=== PATIENT | female | born 1930 | race Caucasian/White ===

== ENCOUNTER → 2016-08-23 | Outpatient (CLI) | payer MEDICARE ==
[~2016-08-23] MED LIST: ACET-62 PO; ALBU8.5H INH; ALEN70TA48 PO; ALPR0.255 PO; ATEN25TA PO; BENZ-16 PO; BISA10SU8 RECTALLY; CALC600T12 PO; CARB1TAB18 PO; CHOL200047 PO; DIGO125T88 PO; DOCU-168 PO; FLUT16SP EA NOSTRIL; FOLI1TAB15 PO; GABA-338 PO; GUAI5SYR PO; HYDR-4246 PO; LATA2.5D2 LEFT EYE; MAGN400O4 PO; MECL-103 PO; PRAM0.259 PO; RIVA15TA PO; RIVA20TA PO; SERT25TA5 PO; SODI45SP7 EA NOSTRIL; strontium PO
[2016-08-23 16:08] LABS: ALBUMIN 4.1 G/DL (3.5-5.0); BILIRUBIN,TOTAL 2.6 MG/DL (0.20-1.30); CALCIUM 9.9 MG/DL (8.4-10.2); MAGNESIUM 1.9 MG/DL (1.6-2.3); POTASSIUM 4.8 MEQ/L (3.6-5); TOTAL PROTEIN 8.2 G/DL (6.3-8.2)
[2016-08-23 16:17] LABS: IGG - IMMUNOGLOBULIN G 1016.85 MG/DL (700-1600); IGM - IMMUNOGLOBULIN M 55.05 MG/DL (40-230)
[2016-08-23 16:29] LABS: IGA - IMMUNOGLOBULIN A 1220.84 MG/DL (70-400)
[2016-08-23 16:50] LABS: ABSOLUTE RETICS # 0.5891 T/MM3 (0.0300-0.0900); HCT - HEMATOCRIT 44.3 % (36-46); HGB - HEMOGLOBIN 12.2 GM/DL (12-16); MEAN CORPUSCULAR HGB 41.4 UUG (26-34); MEAN CORPUSCULAR HGB CONC(MCHC 27.5 GM/DL (31-37); MEAN CORPUSCULAR VOLUME 150.2 UM3 (80-100); MEAN PLATELET VOLUME 11.9 UM3 (9.4-12.4); RED BLOOD COUNT 2.95 M/MM3 (4.00-5.20); RETICULOCYTE HGB 38.2 PG (30.8-36.6); WBC - WHITE BLOOD COUNT 11.5 T/MM3 (4.5-11.0)
[2016-08-23 18:37] LABS: ANISOCYTOSIS 1+; BAND NEUTROPHILS # 0.2 T/MM3; EOSINOPHILS # (MANUAL) 0.2 T/MM3 (0-0.5); LYMPHOCYTES # (MANUAL) 5.2 T/MM3 (1-4.8); MONOCYTES # (MANUAL) 0.5 T/MM3 (0-0.8); NEUTROPHILS #(MANUAL)-ABSOLUTE 5.4 T/MM3 (1.8-7.7); NUCLEATED RED BLOOD CELLS 3; TOTAL CELLS COUNTED 100 %
[2016-08-23 18:38] LABS: POIKILOCYTOSIS 2+
[2016-08-23 18:39] LABS: POLYCHROMASIA 1+
[2016-08-25 04:26] LABS: FOLATE > 20.0 NG/ML (2.76-20); VITAMIN B12 - BATCH 639 PG/ML (239-931)
== END ==
LOC: LABN 15:41
PROVIDERS: ATTEND Internal Medicine Hematology & Oncology
DX: D58.8 Other specified hereditary hemolytic anemias (principal); D64.9 Anemia, unspecified; D72.828 Other elevated white blood cell count
CPT/HCPCS: 80053; 82607; 82668; 82746; 82784; 83010; 83090; 83615; 83735; 83883; 83921; 84155; 84165; 85025; 85045; 86334; 86850; 86880

== ENCOUNTER → 2016-09-06 | Outpatient (CLI) | payer MEDICARE ==
--- NOTE | 2016-09-06 17:12 | DI ---
Indication: ITS.REASON: D47.2 Monoclonal gammopathy PROCEDURE: OSSEOUS SURVEY 1 YR TO ADULT: Encounter: Initial Comparison: No direct comparison available Findings: AP and lateral views of the skull: No gross lytic or blastic osseous lesion. There is a apparent sharp cortical margin seen in the right temporal area on the frontal view which is most likely artifactual. AP and lateral views of the cervical spine: No acute fracture. Mild degenerative change in the lower cervical spine. No obvious lytic or blastic bony lesion. AP view of the right ribs: No acute displaced rib fracture. No obvious lytic or blastic rib lesion. AP view of the left ribs: No acute fracture. No lytic or blastic rib lesion appreciated. AP view of the right humerus: Normal for age. AP view of the left humerus: Normal for age. AP view of the right forearm: Normal for age. AP view of the left forearm: Normal for age. AP and lateral views of the thoracic spine: No acute fracture or subluxation. No pathologic lytic or blastic bony lesion seen. Minimal degenerative change for age. AP and lateral views of the lumbar spine: No acute fracture. Minimal degenerative change for age. No lytic or blastic bony lesion. AP view the pelvis: No acute fracture. No lytic or blastic bony lesion. Healed internally fixed left femoral neck fracture. AP views of the right femur: No acute fracture. No lytic or blastic bony lesion. AP views of the left femur: Healed internally fixed left femoral neck fracture. No evidence of hardware loosening or failure. No definite lytic or blastic bony lesions. AP view of the right tibia and fibula: No acute fracture. No lytic or blastic bony lesions. Mild fibular periosteal thickening suggesting venous insufficiency. AP view of the left tibia and fibula: No acute fracture. No lytic or blastic bony lesions. Mild fibular periosteal thickening suggesting venous insufficiency. Impression: No lytic or blastic osseous lesions seen. .
== END ==
LOC: IMA 16:18
PROVIDERS: ATTEND Internal Medicine Hematology & Oncology
DX: D47.2 Monoclonal gammopathy (principal)

== ENCOUNTER → 2016-09-07 | Outpatient (CLI) | payer MEDICARE | LOC: LABN 21:35 | PROVIDERS: ATTEND Internal Medicine Hematology & Oncology | DX: D47.2 Monoclonal gammopathy (principal) | CPT/HCPCS: 82570; 83883; 84156; 84166; 86335 ==

== ENCOUNTER → 2016-09-20 | Outpatient (CLI) | payer MEDICARE ==
[2016-09-20 10:12] LABS: HCT - HEMATOCRIT 44.1 % (36-46); HGB - HEMOGLOBIN 11.9 GM/DL (12-16); MEAN CORPUSCULAR HGB 41.5 UUG (26-34); MEAN CORPUSCULAR VOLUME 153.7 UM3 (80-100); MEAN PLATELET VOLUME 10.8 UM3 (9.4-12.4); RED BLOOD COUNT 2.87 M/MM3 (4.00-5.20); WBC - WHITE BLOOD COUNT 12.2 T/MM3 (4.5-11.0)
[2016-09-20 10:27] LABS: BILIRUBIN,TOTAL 2.6 MG/DL (0.20-1.30); CALCIUM 9.7 MG/DL (8.4-10.2); CREATININE 0.8 MG/DL (0.7-1.2); POTASSIUM 4.8 MEQ/L (3.6-5); TOTAL PROTEIN 8.1 G/DL (6.3-8.2)
[2016-09-20 10:45] LABS: EOSINOPHILS # (MANUAL) 0.2 T/MM3 (0-0.5); LYMPHOCYTES # (MANUAL) 5.7 T/MM3 (1-4.8); MONOCYTES # (MANUAL) 0.9 T/MM3 (0-0.8); NEUTROPHILS #(MANUAL)-ABSOLUTE 5.4 T/MM3 (1.8-7.7); TOTAL CELLS COUNTED 100 %
[2016-09-20 10:46] LABS: ANISOCYTOSIS 2+; POIKILOCYTOSIS 1+; POLYCHROMASIA 1+
== END ==
LOC: LAB 09:45
PROVIDERS: ATTEND Internal Medicine Hematology & Oncology
DX: D47.2 Monoclonal gammopathy (principal)
CPT/HCPCS: 36415; 80053; 83615; 85025

== ENCOUNTER 2017-04-21 21:12 | Observation (INO) ==
[2017-04-21] MEDS ORDERED: SALINE FLUSH 10ml SYRINGE IVF PRN (21:21)
--- NOTE | 2017-04-21 21:26 | Emergency Department Report ---
Cardiac General HPI - General Stated Complaint: dizzy, nausea, soa Time Seen by Provider: 04/21/17 21:20 Source: patient, EMS, RN notes reviewed, old records reviewed Mode of arrival: EMS Limitations: altered mental status - History of Present Illness HPI narrative: 87yo woman presented to the ER by EMS for evaluation of tachyarrhythmia. Pt has a h/o a-fib; is on xarelto and digoxin for rhythm control and prophylaxis. Today , pt has not felt well most of the day; she was evaluated by a nurse this evening and found to be in a tachycardic rhythm. EMS gave pt 6mg adenosine with return to NSR for 5min. Pt then went back into a tachy arrhythmia; a second 6mg adenosine with return to NSR. Pt presented to the ER for evaluation in NSR. Occurred At: home Onset (ago): hour(s) Duration: constant Severity: similar to previous episodes Treatments prior to arrival: adenosine History of Similar Symptoms: Yes - Related Data Home Medications Medication Instructions Recorded Confirmed Albuterol Sulfate [Proair Hfa] 1 puff INH QID PRN #0 09/03/15 Alendronate Sodium 70 mg PO WEEKLY #0 09/03/15 Carbidopa/Levodopa 2 tab PO HS #0 09/03/15 [Carbidopa-Levodopa 10-100 Tab] Cholecalciferol (Vitamin D3) 2,000 unit PO DAILY #0 09/03/15 (Vitamin D3) Latanoprost [Xalatan] 1 drop LEFT EYE HS #0 09/03/15 Pramipexole Di-HCl [Pramipexole 0.25 mg PO BID #0 09/03/15 Dihydrochloride] Sertraline HCl 25 mg PO HS #0 09/03/15 strontium 227 mg PO DAILY #0 09/03/15 Acetaminophen 500 - 1,000 mg PO TID PRN #0 11/11/15 Digoxin 125 mcg PO DAILY #0 11/11/15 Gabapentin 300 mg PO TID #0 11/11/15 Previous Rx's Medication Instructions Recorded Atenolol 25 mg PO DAILY #30 tab 04/14/16 Benzonatate 100 mg PO Q4HR PRN #30 cap 04/14/16 Bisacodyl 10 mg RECTALLY DAILY PRN #20 04/14/16 Calcium Carbonate [Calcium] 600 mg PO TID #90 tab 04/14/16 Docusate Sodium [Colace] 1 cap PO BID #60 cap 04/14/16 Fluticasone Nasal [place] [Flonase] 2 spray EA NOSTRIL DAILY #1 bottle 04/14/16 Folic Acid 1 mg PO DAILY #30 tab 04/14/16 Guaifenesin/Dm Oral Liq 10 ml PO Q4H PRN #100 ml 04/14/16 [Robitussin Dm] Magnesium Hydroxide [Milk of 30 ml PO DAILY PRN #1 bottle 04/14/16 Magnesia] Meclizine HCl 25 mg PO TID PRN #30 tab 04/14/16 Rivaroxaban [Xarelto] 15 mg PO BIDWM #25 tab 04/14/16 Rivaroxaban [Xarelto] 20 mg PO WS #30 tab 04/14/16 Sodium Chloride [Deep Sea] 1 spray EA NOSTRIL QID PRN #1 04/14/16 bottle Minong 5 mg-acetaminophen 325 mg 1 tab PO Q6H PRN #60 tab 02/15/17 tablet Xanax (alprazolam) 0.25 mg tablet 0.25 mg PO HS #30 tab 02/21/17 Allergies Allergy/AdvReac Type Severity Reaction Status Date / Time doxycycline Allergy Unknown Verified 04/04/16 14:14 oxycodone Allergy Unknown Verified 04/04/16 14:14 Penicillins Allergy Unknown Verified 04/04/16 14:14 tramadol Allergy Unknown Verified 04/04/16 14:14 Review of Systems All systems: reviewed and negative except as stated Cardiovascular: Reports: as per HPI, palpitations. Denies: chest pain, dyspnea on exertion, orthopnea, edema, syncope, paroxysmal nocturnal dyspnea PFSH Patient Stated Medical History Dementia Yes Parkinson's Disease Yes Hypertension Yes Anemia Yes Osteoarthritis Yes Other Musculoskeletal Yes: RESTLESS LEGS, FX R [facility] Medical History Hypertriglyceridemia (Chronic Medical) Mixed anxiety depressive disorder (Chronic Medical) Pulmonary embolism (Chronic Medical) Osteoporosis (Chronic Medical) HTN (hypertension) (Chronic Medical) Restless legs syndrome (RLS) (Chronic Medical) Parkinsons disease (Chronic Medical) Anxiety (Chronic Medical) Polycythemia vera (Chronic Medical) Dr. Quinteros Polycythemia vera (Acute Medical) Medical History Updates: A-fib Physical Exam - Limitations Limitations: no limitations - General General appearance: alert, in no apparent distress - Normal Exams: Head:: Normocephalic without trauma Eyes:: Pupils are PERRLA w/ EOMI, No scleral icterus, irritation, or foreign bodies noted ENMT:: No facial trauma, nasal exudates, pharyngeal erythema, or exudates are noted Neck:: Full range of motion, without adenopathy Chest/Respirations:: Clear all chan, with good airflow, and symmetry bilaterally Cardiovascular:: Regular rate and rhythm, without murmur or gallop, Pulses 2+ all extremities, capillary refill, <2 seconds all extremities Lymphatic:: No lymphadenopathy Musculoskeletal:: No tenderness, or deformity noted Integumentary:: No rashes, hives, or bruising noted Neurological:: Patient is alert, and oriented Psychiatric:: Patient exhibits, appropriate attention Course - Consultations Consultation #1: Teleneurology: Will accept pt for obs overnight. Time: 22:37 Vital Signs Temperature 98.1 F 04/21/17 21:15 Pulse Rate 93 04/21/17 21:15 Respiratory Rate 20 04/21/17 21:15 Blood Pressure 129/60 04/21/17 21:15 Pulse Oximetry 93 04/21/17 21:15 Temperature 98.1 F 04/21/17 21:15 Pulse Rate 96 04/21/17 21:47 Respiratory Rate 45 H 04/21/17 21:47 Blood Pressure 117/60 04/21/17 21:47 Pulse Oximetry 90 04/21/17 21:47 Cardiac General - Differential Diagnosis Differential diagnosis: Likely: palpitations, anxiety, sinus tachycardia, artial fibrillation, artial flutter, supraventricular tachycardia - Medical Records Attestation: I reviewed the patient's medical records. - Lab Data Attestation: I reviewed the patient's lab results. Result diagrams: 04/21/17 21:25 04/21/17 21:25 Lab Results 04/21/17 04/21/17 04/21/17 Range/Units 21:25 21:25 21:47 WBC 12.3 H (4.5-11.0) T/MM3 RBC 2.84 L (4.00-5.20) M/MM3 Hgb 11.6 L (12-16) GM/DL Hct 45.5 (36-46) % MCV 160.2 H (80-100) UM3 MCH 40.8 H (26-34) UUG MCHC 25.5 L (31-37) GM/DL RDW Std Deviation 88.6 H (36.9-50.2) FL Plt Count 319 (130-400) T/MM3 MPV 11.5 (9.4-12.4) UM3 Immature Gran % (Auto) Not performed Neut % (Auto) Not performed Lymph % (Auto) Not performed [place] % (Auto) Not performed Eos % (Auto) Not performed Baso % (Auto) Not performed Neut # (Auto) Not performed Lymph # (Auto) Not performed [place] # (Auto) Not performed Eos # (Auto) Not performed Baso # (Auto) Not performed Abs Immat Gran (auto) Not performed Neutrophils % (Manual) 55.0 (33-66) % Band Neutrophils % 1.0 (0-6) % Lymphocytes % (Manual) 36.0 (23-45) % Monocytes % (Manual) 6.0 (0-9.0) % Eosinophils % (Manual) 2.0 (0-4) % Neutrophils # (Manual) 6.8 (1.8-7.7) T/MM3 Band Neutrophils # 0.1 T/MM3 Lymphocytes # (Manual) 4.4 (1-4.8) T/MM3 Monocytes # (Manual) 0.7 (0-0.8) T/MM3 Eosinophils # (Manual) 0.2 (0-0.5) T/MM3 Poikilocytosis 1+ Anisocytosis 2+ Macrocytosis 2+ [place] Bodies 1+ RBC Morph Comment Abnormal Turbidity < 20 (0-20) Sodium 141 (134-144) MEQ/L Potassium 4.5 (3.6-5) MEQ/L Chloride 103 (98-107) MEQ/L Carbon Dioxide 21 L (22-30) MEQ/L Anion Gap 17 H (5-15) MEQ/L BUN 23.0 H (7-17) MG/DL Creatinine 1.2 (0.7-1.2) MG/DL GFR Calculation 42 BUN/Creatinine Ratio 19 (6-26) RATIO Glucose 210 H (65-110) MG/DL Calculated Osmolality 281 H (261-280) MOSM/KG Calcium 9.0 (8.4-10.2) MG/DL Icterus Index < 2 (0-7) Troponin I 0.022 (0-0.12) ng/ml TSH 3.49 (0.47-4.68) MIU/L Specimen Hemolysis 108 H (0-25) Ur Collection Type Urine, clean catch Urine Color Yellow (YELLOW) Urine Clarity Clear Urine pH 7.0 (5.0-8.0) Ur Specific [place] 1.010 L (1.015-1.025) Urine Protein Negative (NEGATIVE) Urine Glucose (UA) Negative (NEGATIVE) Urine Ketones Negative (NEGATIVE) Urine Occult Blood Negative (NEGATIVE) Urine Nitrate Negative (NEGATIVE) Urine Bilirubin Negative (NEGATIVE) Urine Urobilinogen 0.2 (NORMAL) EU/DL Ur Leukocyte Esterase Trace A (NEGATIVE) Urinalysis Comment Microscopic not ind. - Radiology Data Attestation: I reviewed the patient's radiology results. CXR: Improved CXR; No acute CT pathology. - EKG Data EKG #1 EKG attestation: Yes: I reviewed and interpreted this EKG. EKG shows normal: sinus rhythm, QRS complexes, ST-T waves [place]/QRS: left axis deviation Heart block present: 1st Degree Disposition Prescriptions: No Action Alendronate Sodium 70 mg PO WEEKLY #0 Albuterol Sulfate [Proair Hfa] 1 puff INH QID PRN #0 PRN Reason: PRN ORDERS Sertraline HCl 25 mg PO HS #0 Carbidopa/Levodopa [Carbidopa-Levodopa 10-100 Tab] 2 tab PO HS #0 Cholecalciferol (Vitamin D3) (Vitamin D3) 2,000 unit PO DAILY #0 Digoxin 125 mcg PO DAILY #0 Acetaminophen 500 - 1,000 mg PO TID PRN #0 PRN Reason: PAIN Calcium Carbonate [Calcium] 600 mg PO TID #90 tab Atenolol 25 mg PO DAILY #30 tab Guaifenesin/Dm Oral Liq [Robitussin Dm] 10 ml PO Q4H PRN #100 ml PRN Reason: COUGH Fluticasone Nasal [place] [Flonase] 2 spray EA NOSTRIL DAILY #1 bottle Sodium Chloride [Deep Sea] 1 spray EA NOSTRIL QID PRN #1 bottle PRN Reason: NASAL CONGESTION Bisacodyl 10 mg RECTALLY DAILY PRN #20 PRN Reason: CONSTIPATION Magnesium Hydroxide [Milk of Magnesia] 30 ml PO DAILY PRN #1 bottle PRN Reason: CONSTIPATION Folic Acid 1 mg PO DAILY #30 tab Rivaroxaban [Xarelto] 20 mg PO WS #30 tab Docusate Sodium [Colace] 1 cap PO BID #60 cap Pramipexole Di-HCl [Pramipexole Dihydrochloride] 0.25 mg PO BID #0 strontium 227 mg PO DAILY #0 Latanoprost [Xalatan] 1 drop LEFT EYE HS #0 Gabapentin 300 mg PO TID #0 Rivaroxaban [Xarelto] 15 mg PO BIDWM #25 tab Benzonatate 100 mg PO Q4HR PRN #30 cap PRN Reason: COUGH Meclizine HCl 25 mg PO TID PRN #30 tab PRN Reason: VERTIGO Minong 5 mg-acetaminophen 325 mg tablet 1 tab PO Q6H PRN #60 tab PRN Reason: pain Xanax (alprazolam) 0.25 mg tablet 0.25 mg PO HS #30 tab Referrals: Juan F Diop MD [Primary Care Provider] -
[2017-04-21] MEDS ORDERED: ACETAMINOPHEN 325 MG TABLET PO PRN (23:20)
[2017-04-21] MEDS ORDERED: NS 1,000 ML IV SCH (23:20)
[2017-04-21 23:22] VITALS: BMI 19.5
--- NOTE | 2017-04-22 00:08 | History & Physical Report ---
History of Present Illness Date: 04/22/17 Chief complaint: tachycardia, SVT, gen weakness HPI: Lotus is an 87 y/o female w/ h/o Afib x one time following repair of femur fracture last year, h/o PE about 6 months after femur fx, HTN and multiple other medical issues who presents to ER at [facility] w/ elevated HR. Patient was out w/ her family most of the day and returned to the care home and stated she was not feeling well and feeling generally weak so nurse took her pulse which was 160 at [place]. EMS came and patient still tachycardic, thought to be SVT so adenosine given x 2 and patient returned to sinus rhythm. Patient is ED states she is feeling better, HR in the 80s and sinus rhythm; Patient tachypneic at times and her O2 sat was low so she was placed on 2 L/min O2 per [place] and now sats 95-96% and RR improving. Patient had CXR which per report showed no acute process, troponin = 0.22, WBC = 12.3, UA negative except trace leukocytes and not sent for culture. Patient admitted to the hospitalist service for further evaluation and management. Patient currently states "I feel good and I want to go home". I spoike w/ patient and patient's son and he is the DPOA med decisions and patient is to be a DNR code status. Review of Systems Review of systems: Denies cp, cough and denies any change in baseline SOA which is mild according to patient's son. Patient has baseline THOMAS w/ moderate exertion - walking a distance to the dining nav[place]. She is not on O2 at [place]; Denies KWONG, URI symtpoms ; denies dysphagia, change in bowel or bladder habits. Denies n/t and denies focal neuro deficits. States she did not have any palpitations or feeling of heart racing tonight. [facility] Patient Stated Medical History Dementia Yes Parkinson's Disease Yes Cataracts Yes Hearing Loss Yes Cardiac Arrhythmia Yes Hypertension Yes Hx Urinary Tract Infection Yes Anemia Yes Blood Disorders Yes Osteoarthritis Yes Other Musculoskeletal Yes: RESTLESS LEGS, FX R [facility] Medical History Atrial fibrillation (Acute Medical) Hypertriglyceridemia (Chronic Medical) Mixed anxiety depressive disorder (Chronic Medical) Pulmonary embolism (Chronic Medical) Osteoporosis (Chronic Medical) HTN (hypertension) (Chronic Medical) Restless legs syndrome (RLS) (Chronic Medical) Parkinsons disease (Chronic Medical) Anxiety (Chronic Medical) Polycythemia vera (Chronic Medical) Dr. Quinteros Polycythemia vera (Acute Medical) Medical History Updates: A-fib following femur fx repair within past 1-2 years; Also PE about 6 months after femur fx repair. Family History: No significant family history reported - Social History Smoking status: Never smoker Medications Home Medications Medication Instructions Recorded Confirmed Type Alendronate Sodium 70 mg PO WEEKLY #0 09/03/15 04/22/17 History Carbidopa/Levodopa 2 tab PO HS #0 09/03/15 04/22/17 History [Carbidopa-Levodopa 10-100 Tab] Cholecalciferol (Vitamin D3) 2,000 unit PO DAILY #0 09/03/15 04/22/17 History (Vitamin D3) Latanoprost [Xalatan] 1 drop LEFT EYE HS #0 09/03/15 04/22/17 History Pramipexole Di-HCl [Pramipexole 0.25 mg PO TWICEDAILY #0 09/03/15 04/22/17 History Dihydrochloride] Sertraline HCl 50 mg PO HS #0 09/03/15 04/22/17 History strontium 227 mg PO DAILY #0 09/03/15 04/22/17 History Acetaminophen 650 mg PO TID PRN #0 11/11/15 04/22/17 History Digoxin 125 mcg PO DAILY #0 11/11/15 04/22/17 History Gabapentin 300 mg PO BID #0 11/11/15 04/22/17 History Fenofibrate [Lofibra] 160 mg PO DAILY 04/22/17 04/22/17 History Gabapentin [Neurontin] 600 mg PO HS 04/22/17 04/22/17 History Hydrocodone/APAP *Ed Prepack* 1 tab PO Q4-6HR PRN 04/22/17 04/22/17 History [[place] 5/325 Ed Prepack] Latanoprost 2.5 ml LEFT EYE HS 04/22/17 04/22/17 History Mirtazapine [Remeron] 7.5 mg PO HS 04/22/17 04/22/17 History Multivit-Min/FA/Lycopen/Lutein 1 each PO DAILY 04/22/17 04/22/17 History [Centrum Silver Tablet] Pramipexole [Mirapex] 0.5 mg PO NOON 04/22/17 04/22/17 History Rivaroxaban [Xarelto] 10 mg PO DAILY 04/22/17 04/22/17 History Allergies Allergy/AdvReac Type Severity Reaction Status Date / Time doxycycline Allergy Unknown Verified 04/04/16 14:14 oxycodone Allergy Unknown Verified 04/04/16 14:14 Penicillins Allergy Unknown Verified 04/04/16 14:14 tramadol Allergy Unknown Verified 04/04/16 14:14 Exam Vital Signs: Temperature 98.1 F 04/21/17 21:15 Pulse Rate 96 04/21/17 21:47 Respiratory Rate 45 H 04/21/17 21:47 Blood Pressure 117/60 04/21/17 21:47 Pulse Oximetry 90 04/21/17 21:47 Telemetry Rhythm: Sinus Rhythm Height/Weight/BMI: Height 1.57 m Weight 48.5 kg Body Mass Index 19.5 - Constitutional Present: no acute distress, well nourished, well developed - Routine HEENT Exam Head: Present: normocephalic, atraumatic Eye: Present: EOMI, PERRL ENT: Present: mucous membranes dry - Routine Neck Exam Present: supple, full ROM. Absent: JVD - Routine Respiratory Exam Present: CTA bilaterally, rhonchi (scattered). Absent: accessory muscle use Comments: has elevated RR - improved compared to initial presentation - Routine Cardiovascular Exam Present: RRR, S1, S2 - Routine Abdominal Exam Present: soft, normoactive bowel sounds, non distended, non tender - Routine Extremities Exam Absent: cyanosis, clubbing, edema - Routine Skin Exam Present: intact, dry, warm. Absent: cyanosis - Routine Neurological Exam Present: alert, oriented X3, CN II-XII intact hard of hearing - Routine Psychiatric Exam Present: normal affect, normal thought process Results - Labs CBC & Chem 7: 04/22/17 05:15 04/22/17 05:15 Assessment and Plan Assessment and Plan: Assessment: 1) Acute SVT - resolved w/ Adenosine x 2 2) Acute Hypoxia - possibly chronic in nature though not on O2 at home and pulse ox not often checked 3) Chronic SOA, irvin w/ exertion - likely multifactorial 4) HTN 5) AFib - paroxysmal - to son's knowledge only occurred one time after femur fx repair about 1-2 years ago 6) H/o PE - on Xarelto 7) Parkinson's 8) HLD 9) OA 10) RLS PLan: 1) Admit to Hospitalist service 2) Telemetry 3) Cardiology consult 4) Serial troponins 5) IVFS that of NS at 75 cc/hour overnight - reassess for need in the AM 6) Home meds - to be reviewed and restarted as indicated 7) Dig level 8) Labs in AM 9) Prn albuterol or xopenex if available 10) Oxygen therapy - titrate as needed to keep sats > 90% 11) Supportive care 12) DNR - confirmed by patient's son who is DPOA Medical 13) Continue Xarelto I discussed the plan of care w/ the patient and the patient verbalized understanding and agreement Ana Paula 04/22/17-1130 CC: Feel tired and nauseated - Nursing staff at [place] notes tachycardia HPI: 87 y/o WF presents to [facility] ED via ems secondary to above noted concerns. Spent day out with family for Thanksgiving. Was not feeling well most of the day -more tired. Ate okay. Notes SOA with activities, but nothing out of ordinary. When got home, was feeling very tired. Wanted to go to bed as so tire. [place] very nauseated-did not take her evening medications as knew would not be able to keep them down. Nursing checked on patient. Found HR very elevated. Patient not feeling palpitations or chest pain/pressure. EMS activated. Given 6mg IV adenosine and HR went to NSR for about 5 minutes. Returned to tachycardia- repeat 6mg adenosine give and return to NSR. Taken to [facility] ED for evaluation. EKG with NSR. Placed in OBS for further evaluation. PHMx: Paroxysmal afib, Xarelto anticoagulation secondary to PE, HTN, HLD, Parkinson's OA, RLS, MGUS, Hx Splenectomy, Hx femur fracture. Med/Allergies - see JUL Shx: Lives at [facility] in [place]. No smoke. Jadon PCP. FHx: Mother-CHF,CVA. Father-liver Ca. Sister-Ovarian Ca. Son-strokes. Daughter at 21 secondary to pulm HTN ROS: as above. Other than fatigue and nausea last night, denies new symptoms. 10 point ROS discussed and negative. Exam: GEN: [id number] awake and alert. HEENT: NC/AT PERRLA EOMI MMM Neck: Midline, supple CV: regular without murmur Lungs: clear bilaterally. No crackles or wheezes. Breaths comfortably on RA without distress AB: soft nt/nd +BS EXT: no C/C/E. SCD in place MS: normal muscle mass and tone in upper/lower ext. Neuro: CN II-XII intact. No focal deficits Psych: awake alert appropriate. No agitation or restlessness SKIN: warm and dry. Assessment SVT - resolved post adenosine Elevated troponin secondary to tachycardia Hypoxia - resolved Paroxysmal afib Anticoagulation with Xarelto HTN Parkinson's MGUS OS RLS Plan OBS. Tele. Serial enzymes. Continue home meds. Cardiology consult. Wean O2. DNR as per her requests. Case discussed with CM, patient and her son's. DVT Prophylaxis: SCD's Resuscitation Status: Do Not Resuscitate Hospital Course Summary Disclaimer: The visit summary below is not to be considered part of the above Progress Note. Hospital Course: 04/21/17 Assessment: Acute SVT - resolved w/ Adenosine x 2 Acute Hypoxia - possibly chronic in nature though not on O2 at home and pulse ox not often checked Chronic SOA, irvin w/ exertion - likely multifactorial HTN AFib - paroxysmal - to son's knowledge only occurred one time after femur fx repair about 1-2 years ago H/o PE - on Xarelto Parkinson's HLD OA RLS Plan: Admit to Hospitalist service Telemetry Cardiology consult Serial troponins IVFS that of NS at 75 cc/hour overnight - reassess for need in the AM Home meds - to be reviewed and restarted as indicated Dig level Labs in AM Prn albuterol or xopenex if available Oxygen therapy - titrate as needed to keep sats > 90% Supportive care DNR - confirmed by patient's son who is DPOA Medical Continue Xarelto
[2017-04-22] MEDS ORDERED: PRAMIPEXOLE 0.25 MG TABLET PO SCH ×2 (01:15→09:00)
[2017-04-22] MEDS ORDERED: HYDROCODONE/APAP 5mg/325mg TABLET PO PRN (05:50)
--- NOTE | 2017-04-22 08:06 | XRay Report ---
Indication: Tachy PROCEDURE: XR chest 1V: Encounter: Initial Comparison: April 13, 2016 Findings: Chronic increased interstitial markings could be due to pulmonary vascular congestion. Prior left pleural effusion has resolved. No new areas of lobar consolidation. No pneumothorax. Heart size and mediastinal contours are stable. Impression: No pneumonia or overt congestive failure. .
[2017-04-22 08:16] VITALS: TEMP 99.8
[2017-04-22] MEDS: GABAPENTIN 300 MG CAPSULE PO SCH ×2 (08:29→11:56)
[2017-04-22] MEDS: CALCIUM CARBONATE 600 MG TABLET PO SCH ×2 (08:38→15:25)
[2017-04-22] MEDS ORDERED: FENOFIBRATE 160 MG TABLET PO SCH (09:00)
[2017-04-22] MEDS ORDERED: DIGOXIN 125 MCG TABLET PO SCH (09:00)
[2017-04-22] MEDS ORDERED: PRAMIPEXOLE 0.5 MG TABLET PO SCH (12:00)
[2017-04-22 13:17] VITALS: BP 125/61; PULSE 70; RESP 18; O2SAT 92
--- NOTE | 2017-04-22 15:27 | Cardiology Consult Note ---
<Meenu Mohr - Last Filed: 04/22/17 16:11> History of Present Illness Consult date: 04/22/17 Requesting physician: Asaf Goss Chief complaint: Tachycardia, general feeling of unwellness History of present illness: Pt has a known history of PAF, on xarelto and metoprolol. She follows with Dr. Ronda Robb in [place] once yearly, she does not remember when she saw him last. She spent most of the day yesterday out with her family and returned to the residential not feeling well, her pulse was elevated and EMS was called. Per EMS report they felt the rhythm to be SVT and she was given 2 doses of adenosine , she arrived to the ED in SR rate 80's. She denies chest pain, palpitations or near syncope. She has a hx of PE's and is on Xarelto. She is a poor historian and pleasantly demented upon interview and states repeatedly she would like to go home. Review of Systems - Constitutional Constitutional: Present: fatigue, weakness. Absent: anorexia, fever(s) - EENMT Eyes: Absent: loss of vision Balance: Absent: vertigo - Cardiovascular Cardiovascular: Present: dyspnea on exertion. Absent: chest pain, palpitations , syncope, edema Rhythm: Present: abnormal rhythm Vascular: Absent: pedal edema - Respiratory Respiratory: Present: dyspnea. Absent: cough - Gastrointestinal Gastrointestinal: Absent: abdominal pain - Genitourinary Genitourinary: Absent: dysuria - Musculoskeletal Musculoskeletal: Present: abnormal gait - Neurological Neurological: Present: confusion. Absent: dizziness - Endocrine Endocrine: Absent: palpitations [facility] Patient Stated Medical History Dementia Yes Parkinson's Disease Yes Cataracts Yes Hearing Loss Yes Cardiac Arrhythmia Yes Hypertension Yes Hx Urinary Tract Infection Yes Anemia Yes Blood Disorders Yes Osteoarthritis Yes Other Musculoskeletal Yes: RESTLESS LEGS, FX R [facility] Medical History Atrial fibrillation (Acute Medical) Hypertriglyceridemia (Chronic Medical) Mixed anxiety depressive disorder (Chronic Medical) Pulmonary embolism (Chronic Medical) Osteoporosis (Chronic Medical) HTN (hypertension) (Chronic Medical) Restless legs syndrome (RLS) (Chronic Medical) Parkinsons disease (Chronic Medical) Anxiety (Chronic Medical) Polycythemia vera (Chronic Medical) Dr. Quinteros Polycythemia vera (Acute Medical) Medical History Updates: A-fib following femur fx repair within past 1-2 years; Also PE about 6 months after femur fx repair. Surgical History: femur fx, repair - Social History Smoking status: Never smoker Alcohol intake frequency: does not drink Housing: residential Medications Home Medications Medication Instructions Recorded Confirmed Type Alendronate Sodium 70 mg PO WEEKLY #0 09/03/15 04/22/17 History Carbidopa/Levodopa 2 tab PO HS #0 09/03/15 04/22/17 History [Carbidopa-Levodopa 10-100 Tab] Cholecalciferol (Vitamin D3) 2,000 unit PO DAILY #0 09/03/15 04/22/17 History (Vitamin D3) Latanoprost [Xalatan] 1 drop LEFT EYE HS #0 09/03/15 04/22/17 History Pramipexole Di-HCl [Pramipexole 0.25 mg PO TWICEDAILY #0 09/03/15 04/22/17 History Dihydrochloride] Sertraline HCl 50 mg PO HS #0 09/03/15 04/22/17 History strontium 227 mg PO DAILY #0 09/03/15 04/22/17 History Acetaminophen 650 mg PO TID PRN #0 11/11/15 04/22/17 History Digoxin 125 mcg PO DAILY #0 11/11/15 04/22/17 History Gabapentin 300 mg PO BID #0 11/11/15 04/22/17 History Fenofibrate [Lofibra] 160 mg PO DAILY 04/22/17 04/22/17 History Gabapentin [Neurontin] 600 mg PO HS 04/22/17 04/22/17 History Hydrocodone/APAP *Ed Prepack* 1 tab PO Q4-6HR PRN 04/22/17 04/22/17 History [Anabel 5/325 Ed Prepack] Mirtazapine [Remeron] 7.5 mg PO HS 04/22/17 04/22/17 History Multivit-Min/FA/Lycopen/Lutein 1 each PO DAILY 04/22/17 04/22/17 History [Centrum Silver Tablet] Pramipexole [Mirapex] 0.5 mg PO NOON 04/22/17 04/22/17 History Rivaroxaban [Xarelto] 10 mg PO DAILY 04/22/17 04/22/17 History Allergies Allergy/AdvReac Type Severity Reaction Status Date / Time doxycycline Allergy Unknown Verified 04/04/16 14:14 oxycodone Allergy Unknown Verified 04/04/16 14:14 Penicillins Allergy Unknown Verified 04/04/16 14:14 tramadol Allergy Unknown Verified 04/04/16 14:14 Exam Vital signs: Temperature 99.8 F 04/22/17 08:00 Pulse Rate 70 04/22/17 11:30 Respiratory Rate 18 04/22/17 11:30 Blood Pressure 125/61 04/22/17 11:30 Pulse Oximetry 92 04/22/17 11:30 - Constitutional no acute distress, thin, cooperative - Routine HEENT Exam Head: Present: normocephalic, atraumatic Eye: Present: PERRL ENT: Present: mucous membranes moist - Routine Neck Exam Absent: JVD, carotid bruit - Routine Respiratory Exam Present: CTA bilaterally - Routine Cardiovascular Exam Present: RRR, no murmur - Routine Abdominal Exam Present: soft, normoactive bowel sounds - Routine Extremities Exam Present: no edema - Routine Skin Exam Present: intact, pallor - Routine Neurological Exam Present: alert, moving all extremities, hearing grossly intact - Routine Psychiatric Exam Present: normal affect (not a good historian), cooperative Results 04/22/17 05:15 04/22/17 05:15 Cardiac Enzymes 04/22/17 04/22/17 04/22/17 Range/Units 01:43 05:15 12:02 Troponin I 0.107 D 0.134 H 0.107 (0-0.12) ng/ml CBC 04/22/17 Range/Units 05:15 WBC 10.4 (4.5-11.0) T/MM3 RBC 2.62 L (4.00-5.20) M/MM3 Hgb 10.3 L D (12-16) GM/DL Hct 40.9 (36-46) % Plt Count 305 (130-400) T/MM3 Neut # (Auto) Not performed Lymph # (Auto) Not performed Haines # (Auto) Not performed Eos # (Auto) Not performed Baso # (Auto) Not performed Comprehensive Metabolic Panel 04/22/17 Range/Units 05:15 Sodium 142 (134-144) MEQ/L Potassium 4.6 (3.6-5) MEQ/L Chloride 111 H D (98-107) MEQ/L Carbon Dioxide 19 L (22-30) MEQ/L BUN 19.0 H (7-17) MG/DL Creatinine 1.0 D (0.7-1.2) MG/DL Glucose 105 (65-110) MG/DL Calcium 8.3 L (8.4-10.2) MG/DL Albumin 3.5 (3.5-5.0) G/DL Intake and Output 04/22/17 04/22/17 04/22/17 06:59 14:59 22:59 Intake Total 300 / 300 1212.5 / 1212.5 Output Total 250 / 250 350 / 350 Balance 50 / 50 862.5 / 862.5 Intake: IV 912.5 / 912.5 Ns 1,000 ml @ 75 mls/hr 912.5 / 912.5 IV .[id number] SUSU Rx#: [id number] Oral 300 / 300 300 / 300 Output: Urine 250 / 250 350 / 350 Other: Urine Appearance Clear Cloudy Urine Color Dark Yellow Dark Sunshine Urine Odor Normal Normal Stool Color Brown Stool Consistency Dry and Hard Formed Size of Bowel Movement Moderate # Voids 1 # Bowel Movements 1 Weight 48.5 kg 51.6 kg Patient Weight 04/23/17 06:59 Weight 51.6 kg - Imaging and Cardiology EKG results: image reviewed - EKG Interpretation EKG: sinus rhythm (SR First Degree AV block) EKG interpretations - Dysrhythmias Sinus rhythms and dysrhythmias: sinus rhythm - Blocks, axis, hypertrophy, ST abn AV and intraventricular conduction: 1 AV block Assessment and Plan - Assessment and Plan (1) NSTEMI (non-ST elevated myocardial infarction) Status: Acute (2) HTN (hypertension) Status: Chronic (3) Hypertriglyceridemia Status: Chronic (4) PAF (paroxysmal atrial fibrillation) Status: Chronic - Assessment and Plan NSTEMI PAF HTN Hypertriglyceridemia Troponin made a slight bump but trended back down, likely due to demand ischemia during tachycardic event. Given patients age and comorbidities recommend conservative treatment with CAD risk factor management and close f/u as OP with her PCP and established analytical lead Dr. Robb. She may benefit from outpatient CAD work up given her NSTEMI and self reported exertional dyspnea. Continue on Dig .125mg daily, metoprolol 25mg bid for PAF rate control; Xarelto for stroke risk reduction. TSH 3.49 Dig level wnl at 0.9 This pt was seen and examined by Meenu Mohr APRN Hospital Course Summary Disclaimer: The visit summary below is not to be considered part of the above Progress Note. Hospital Course: 04/21/17 Assessment: Acute SVT - resolved w/ Adenosine x 2 Acute Hypoxia - possibly chronic in nature though not on O2 at home and pulse ox not often checked Chronic SOA, irvin w/ exertion - likely multifactorial HTN AFib - paroxysmal - to son's knowledge only occurred one time after femur fx repair about 1-2 years ago H/o PE - on Xarelto Parkinson's HLD OA RLS Plan: Admit to Hospitalist service Telemetry Cardiology consult Serial troponins IVFS that of NS at 75 cc/hour overnight - reassess for need in the AM Home meds - to be reviewed and restarted as indicated Dig level Labs in AM Prn albuterol or xopenex if available Oxygen therapy - titrate as needed to keep sats > 90% Supportive care DNR - confirmed by patient's son who is DPOA Medical Continue Xarelto <Devang Beebe - Last Filed: 04/26/17 07:38> [facility] Patient Stated Medical History Dementia Yes Parkinson's Disease Yes Cataracts Yes Hearing Loss Yes Cardiac Arrhythmia Yes Hypertension Yes Hx Urinary Tract Infection Yes Anemia Yes Blood Disorders Yes Osteoarthritis Yes Other Musculoskeletal Yes: RESTLESS LEGS, FX R [facility] Medical History Atrial fibrillation (Acute Medical) NSTEMI (non-ST elevated myocardial infarction) (Acute Medical) PAF (paroxysmal atrial fibrillation) (Chronic Medical) Hypertriglyceridemia (Chronic Medical) Mixed anxiety depressive disorder (Chronic Medical) Pulmonary embolism (Chronic Medical) Osteoporosis (Chronic Medical) HTN (hypertension) (Chronic Medical) Restless legs syndrome (RLS) (Chronic Medical) Parkinsons disease (Chronic Medical) Anxiety (Chronic Medical) Polycythemia vera (Chronic Medical) Dr. Quinteros Polycythemia vera (Acute Medical) Exam Vital signs: Temperature 99.8 F 04/22/17 08:00 Pulse Rate 70 04/22/17 11:30 Respiratory Rate 18 04/22/17 11:30 Blood Pressure 125/61 04/22/17 11:30 Pulse Oximetry 92 04/22/17 11:30 Results 04/22/17 05:15 04/22/17 05:15 Assessment and Plan - Attestation Attestation Narrative: 04/26/17 07:38 Recommendation After examining the patient I agree with the above assessment. I am involved in the formulation of the patient's plan of care. - Assessment and Plan (1) HTN (hypertension) Status: Chronic (2) Hypertriglyceridemia Status: Chronic (3) NSTEMI (non-ST elevated myocardial infarction) Status: Acute (4) PAF (paroxysmal atrial fibrillation) Status: Chronic Hospital Course Summary Disclaimer: The visit summary below is not to be considered part of the above Progress Note.
--- NOTE | 2017-04-22 16:33 | Progress Note ---
- Date 04/22/17 Subjective: F/U: Tachycardia Doing well this evening. No chest pain or pressure. HR has been stable during hospitalization. Breathing well. Eating well. No new c/o. Wanting to go home. Objective Vital signs: Temperature 99.8 F 04/22/17 08:00 Pulse Rate 70 04/22/17 11:30 Respiratory Rate 18 04/22/17 11:30 Blood Pressure 125/61 04/22/17 11:30 Pulse Oximetry 92 04/22/17 11:30 Height/Weight/BMI: Height 1.57 m Weight 51.6 kg Body Mass Index 19.5 - Constitutional Present: no acute distress, well nourished, well developed, average body habitus , cooperative - Routine HEENT Exam Head: Present: normocephalic, atraumatic Eye: Present: EOMI, PERRL ENT: Present: mucous membranes moist - Routine Respiratory Exam Present: CTA bilaterally. Absent: rales, respiratory distress, rhonchi, wheezes , crackles - Routine Cardiovascular Exam Present: RRR - Routine Abdominal Exam Present: soft, normoactive bowel sounds, non distended, non tender - Routine Extremities Exam Present: no edema, pulses intact. Absent: cyanosis, clubbing - Routine Musculoskeletal Exam Musculoskeletal: Present: no clubbing or cyanosis, normal strength - Routine Skin Exam Present: dry, warm - Routine Neurological Exam Present: alert, CN II-XII intact, moving all extremities, vision grossly intact , hearing grossly intact, normal speech. Absent: motor deficit, altered mental status - Routine Psychiatric Exam Present: normal affect, cooperative Results - Labs CBC & Chem 7: 04/22/17 05:15 04/22/17 05:15 Assessment and Plan Assessment and Plan: Assessment Tachy arrhythmia Elevated troponin secondary to tachycardia - Type II NSTEMI, demand ischemia Hypoxia - resolved Paroxysmal afib Anticoagulation with Xarelto HTN Parkinson's MGUS OS RLS Plan Case discussed with cardiology and family. HR stable and no acute cardiopulmonary symptoms. Cardiology recommend conservative approach currently. Continue current cardiovascular medications. Recommend outpatient f/u with PCP and Drug Enforcement Agent. Will discharge to home. See orders for details DVT Prophylaxis: SCD's, Xarelto Hospital Course Summary Disclaimer: The visit summary below is not to be considered part of the above Progress Note. Hospital Course: 04/21/17 Assessment: Acute SVT - resolved w/ Adenosine x 2 Acute Hypoxia - possibly chronic in nature though not on O2 at home and pulse ox not often checked Chronic SOA, irvin w/ exertion - likely multifactorial HTN AFib - paroxysmal - to son's knowledge only occurred one time after femur fx repair about 1-2 years ago H/o PE - on Xarelto Parkinson's HLD OA RLS Plan: Admit to Hospitalist service Telemetry Cardiology consult Serial troponins IVFS that of NS at 75 cc/hour overnight - reassess for need in the AM Home meds - to be reviewed and restarted as indicated Dig level Labs in AM Prn albuterol or xopenex if available Oxygen therapy - titrate as needed to keep sats > 90% Supportive care DNR - confirmed by patient's son who is DPOA Medical Continue Xarelto 04/22/17 Troponin with mild elevation. Case discussed with cardiology and family. HR stable and no acute cardiopulmonary symptoms. Cardiology recommend conservative approach currently. Continue current cardiovascular medications. Recommend outpatient f/u with PCP and Drug Enforcement Agent. Will discharge to home. See orders for details
--- NOTE | 2017-04-22 16:49 | Discharge Summary ---
Discharge Information Date of admission: 04/21/17 22:54 Anticipated date of discharge: 04/22/17 Attending Physician: Dr Goss Primary care physician: Juan F Diop MD Consults: Dr Beebe - Cardiology Discharge diagnosis Tachy arrhythmia Associated conditions and complications Elevated troponin secondary to tachycardia - Type II NSTEMI, demand ischemia Hypoxia - resolved Paroxysmal afib Anticoagulation with Xarelto HTN Parkinson's MGUS OS RLS - Laboratory Labs: Admit Lab 04/21/17 21:25 WBC 12.3 H Hgb 11.6 L Hct 45.5 MCV 160.2 H Plt Count 319 Neutrophils % (Manual) 55.0 Band Neutrophils % 1.0 Lymphocytes % (Manual) 36.0 Admit Lab 04/21/17 21:25 Sodium 141 Potassium 4.5 Chloride 103 Carbon Dioxide 21 L Anion Gap 17 H BUN 23.0 H Creatinine 1.2 GFR Calculation 42 Glucose 210 H Calculated Osmolality 281 H Troponin I 0.022 TSH 3.49 Troponin I 04/22/17 04/22/17 04/22/17 01:43 05:15 12:02 Troponin I 0.107 D 0.134 H 0.107 Digoxin Level 04/22/17 05:15 Digoxin 0.9 04/22/17 05:15 04/22/17 05:15 - Radiology Radiology: Date of Exam: 04/21/17 PROCEDURE: XR chest 1V Findings: Chronic increased interstitial markings could be due to pulmonary vascular congestion. Prior left pleural effusion has resolved. No new areas of lobar consolidation. No pneumothorax. Heart size and mediastinal contours are stable. Impression: No pneumonia or overt congestive failure. History of Present Illness HPI: Lotus is an 87 y/o female w/ h/o Afib x one time following repair of femur fracture last year, h/o PE about 6 months after femur fx, HTN and multiple other medical issues who presents to ER at [facility] w/ elevated HR. Patient was out w/ her family most of the day and returned to the custodial and stated she was not feeling well and feeling generally weak so nurse took her pulse which was 160 at ID. EMS came and patient still tachycardic, thought to be SVT so adenosine given x 2 and patient returned to sinus rhythm. Patient is ED states she is feeling better, HR in the 80s and sinus rhythm; Patient tachypneic at times and her O2 sat was low so she was placed on 2 L/min O2 per NC and now sats 95-96% and RR improving. Patient had CXR which per report showed no acute process, troponin = 0.22, WBC = 12.3, UA negative except trace leukocytes and not sent for culture. Patient admitted to the hospitalist service for further evaluation and management. Patient currently states "I feel good and I want to go home". I spoike w/ patient and patient's son and he is the DPOA med decisions and patient is to be a DNR code status. For complete details of the H&P refer to that document. Objective Vital signs: Temperature 99.8 F 04/22/17 08:00 Pulse Rate 70 04/22/17 11:30 Respiratory Rate 18 04/22/17 11:30 Blood Pressure 125/61 04/22/17 11:30 Pulse Oximetry 92 04/22/17 11:30 Height/Weight/BMI: Height 1.57 m Weight 51.6 kg Body Mass Index 19.5 Hospital Course This is a general summary of the patient's hospital course. For more details refer to the complete medical record. Hospital course: 04/21/17 Assessment: Acute SVT - resolved w/ Adenosine x 2 Acute Hypoxia - possibly chronic in nature though not on O2 at home and pulse ox not often checked Chronic SOA, irvin w/ exertion - likely multifactorial HTN AFib - paroxysmal - to son's knowledge only occurred one time after femur fx repair about 1-2 years ago H/o PE - on Xarelto Parkinson's HLD OA RLS Plan: Admit to Hospitalist service Telemetry Cardiology consult Serial troponins IVFS that of NS at 75 cc/hour overnight - reassess for need in the AM Home meds - to be reviewed and restarted as indicated. Metoprolol 25mg po BIDWM. Dig level Labs in AM Prn albuterol or xopenex if available Oxygen therapy - titrate as needed to keep sats > 90% Supportive care DNR - confirmed by patient's son who is DPOA Medical Continue Xarelto 04/22/17 Troponin with mild elevation. Case discussed with cardiology and family. HR stable and no acute cardiopulmonary symptoms. Cardiology recommend conservative approach currently. Continue current cardiovascular medications. Recommend outpatient f/u with PCP and Enrober. Will discharge to home. See orders for details Time spent with patient: discharge greater than 30 minutes DVT Prophylaxis: SCD's, Xarelto Discharge Plan - Discharge Disposition Discharge Date: 04/22/17 Disposition: 01 Discharged Home, Self-Care *Condition: Stable Reason For Visit (Visit label in EMR): SVT hypoxia - Discharge Medications *Discharge Medications: New Metoprolol Tartrate [Lopressor] 25 mg PO BIDWM #60 tab Continue Alendronate Sodium 70 mg PO WEEKLY #0 Sertraline HCl 50 mg PO HS #0 Carbidopa/Levodopa [Carbidopa-Levodopa 10-100 Tab] 2 tab PO HS #0 Cholecalciferol (Vitamin D3) (Vitamin D3) 2,000 unit PO DAILY #0 Digoxin 125 mcg PO DAILY #0 Acetaminophen 650 mg PO TID PRN #0 PRN Reason: PAIN Calcium Carbonate [Calcium] 600 mg PO TID #90 tab Folic Acid 1 mg PO DAILY #30 tab Gabapentin [Neurontin] 600 mg PO HS Fenofibrate [Lofibra] 160 mg PO DAILY Multivit-Min/FA/Lycopen/Lutein [Centrum Silver Tablet] 1 each PO DAILY Rivaroxaban [Xarelto] 10 mg PO DAILY Pramipexole Di-HCl [Pramipexole Dihydrochloride] 0.25 mg PO TWICEDAILY #0 strontium 227 mg PO DAILY #0 Latanoprost [Xalatan] 1 drop LEFT EYE HS #0 Gabapentin 300 mg PO BID #0 Mirtazapine [Remeron] 7.5 mg PO HS Pramipexole [Mirapex] 0.5 mg PO NOON Hydrocodone/APAP *Ed Prepack* [Stanton 5/325 Ed Prepack] 1 tab PO Q4-6HR PRN PRN Reason: pain Xanax (alprazolam) 0.25 mg tablet 0.25 mg PO HS #30 tab Discontinued Latanoprost 2.5 ml LEFT EYE HS - Discharge Packet/Instructions *Diet: Regular *Activity: As tolerated *Pain Management/Treatment: Continue prior pain medications *Wound Care: N/A *Expected Signs/Symptoms: Stability of heart rate and breating. *Notify Physician if: Chest pain/pressure. *During Business Hours Contact: Nursing staff at [facility] assisted living *After Business Hours Contact: Nursing staff at [facility] assisted living *Pending Lab/Results: No Pending Lab - Referrals/Follow Up *Referrals/Follow Up: Juan F Diop MD [Primary Care Provider] - 1 Week (Hospital follow up for tachycardia and hypoxia ) CRISTHIAN HESTER [Physician Nonstaff] - 2 Weeks (Hospital follow up for tachycardia with demand ischemia/Type II NSTEMI ) - Patient Handouts - Dismissal Complete Discharge Instructions are:: Complete Attestation Narriative - Attestation Attestation Narrative: 04/22/17 16:51 I have independently interviewed and examined patient prior to discharge. Please see my progress noted from today for details. Medically stable for discharge to home.
[2017-04-22] MEDS ORDERED: RIVAROXABAN 10 MG TABLET PO SCH (17:00)
[2017-04-22] MEDS ORDERED: LATANOPROST 0.005% EYE DROPS 2.5ml LEFT EYE SCH (21:00)
[2017-04-22] MEDS ORDERED: ALPRAZolam 0.25 MG TABLET PO SCH (21:00)
[2017-04-22] MEDS ORDERED: GABAPENTIN 600 MG TABLET PO SCH (21:00)
[2017-04-22] MEDS ORDERED: SERTRALINE 25 MG TABLET PO SCH (21:00)
[2017-04-22] MEDS ORDERED: MIRTAZAPINE 15 MG TABLET PO SCH (21:00)
== END 2017-04-22 17:08 ==
LOC: ED 21:12 → MED 21:12
PROVIDERS: ADMIT Internal Medicine; ATTEND Internal Medicine